=== PATIENT | male | born 1930 | race Caucasian/White ===

== ENCOUNTER 2021-01-18 12:48 | Inpatient (IN) | payer OTHER ==
[2021-01-18 13:18] LABS: VENOUS BASE EXCESS 9.7 mmol/L (-2-2); VENOUS O2 SATURATION 50.9 % (70-80); VENOUS PCO2 52.2 mmHg (38-52); VENOUS PH 7.449 (7.310-7.410)
[2021-01-18 13:21] LABS: BASO % 0.6 % (0-2.0); EOS % 0.1 % (0-4.5); HEMATOCRIT 37.8 % (35.4-49); HEMOGLOBIN 13.1 GM/dL (11.7-16.9); LYMPH % 18.8 % (8-40); MCH 33.9 pg (25.7-33.7); MCHC 34.8 g/dl (32.0-35.9); MEAN CELL VOLUME 97.5 fl (80-96); MEAN PLT VOLUME 7.8 fl (7.5-11.1); MONO % 2.3 % (3.8-10.2); NEUT % 78.2 % (42.8-82.8); PLATELET COUNT 95 K/MM3 (134-434); RBC 3.88 M/mm3 (4.00-5.60); RDW 16.9 % (11.9-15.9); WHITE BLOOD COUNT 4.3 K/mm3 (4.0-10.0)
[2021-01-18 13:28] LABS: INR 0.97 (0.83-1.09); PROTHROMBIN TIME (PATIENT) 11.7 SEC (9.7-13.0)
[2021-01-18] MEDS ORDERED: VANCOMYCIN 1 GM in D5W (PRE-DOCKED) 1,000 MG/250 ML IVPB ONE (13:28)
[2021-01-18] MEDS ORDERED: PIPERACILLIN/TAZOB 2.25 GM 2.25 GM in DEXTROSE 5%-WATER - 50 ML IVPB ONE (13:28)
[2021-01-18] MEDS ORDERED: dilTIAZem HCL 50 MG/10 ML - 10 ML VIAL IVPUSH ONE (13:29)
[2021-01-18 13:30] LABS: ACTIVATED PTT 23.9 SECONDS (25.2-36.5)
[2021-01-18] MEDS ORDERED: PIPERACILLIN/TAZOB 2.25 GM 2.25 GM/50 ML BAG IVPB ONE (13:41)
[2021-01-18 13:42] LABS: BILIRUBIN,DIRECT 0.3 mg/dL (0.0-0.2)
[2021-01-18] MEDS ORDERED: ONDANSETRON 4 MG/2 ML VIAL IVPUSH ONE (13:42)
[2021-01-18] MEDS ORDERED: ONDANSETRON 4 MG/2 ML VIAL ONE (13:44)
[2021-01-18 13:51] LABS: ANISOCYTOSIS 0
[2021-01-18 13:53] LABS: EPI CELLS 13 /uL (0-25.1); HYALINE CASTS 4 /uL (0-3.1); URINE APPEARANCE CLEAR; URINE BACTERIA 150 /uL (0-1359); URINE BILIRUBIN NEGATIVE (NEGATIVE); URINE COLOR YELLOW; URINE GLUCOSE (UA) NEGATIVE (NEGATIVE); URINE KETONE NEGATIVE (NEGATIVE); URINE LEUK ESTERASE NEGATIVE (NEGATIVE); URINE NITRITE NEGATIVE (NEGATIVE); URINE PROTEIN 2+ (NEGATIVE); URINE RBC 24 /uL (0-23.9); URINE UROBILINOGEN 0.2 mg/dL (0.2-1.0); URINE WBC 12 /uL (0-25.8)
[2021-01-18 14:05] LABS: LACTIC ACID 2.4 mmol/L (0.4-2.0)
[2021-01-18 14:08] LABS: CHLORIDE 103 mmol/L (98-107); SODIUM 146 mmol/L (136-145)
[2021-01-18 14:11] LABS: CALCIUM 7.5 mg/dL (8.5-10.1)
[2021-01-18 14:12] LABS: ALBUMIN 2.3 g/dl (3.4-5.0); BLOOD UREA NITROGEN 53.4 mg/dL (7-18); CO2 33 mmol/L (21-32); GLUCOSE,RANDOM 121 mg/dL (74-106)
[2021-01-18 14:15] LABS: CREATININE 2.9 mg/dL (0.55-1.3); SGOT/AST 121 U/L (15-37); SGPT/ALT 61 U/L (13-61)
[2021-01-18 14:16] LABS: ALK PHOS 208 U/L (45-117)
[2021-01-18 14:17] LABS: TOT PROT 6.4 g/dl (6.4-8.2)
[2021-01-18 14:46] LABS: ANION GAP 10 MMOL/L (8-16)
[2021-01-18 14:59] LABS: MAGNESIUM 1.7 mg/dL (1.8-2.4)
[2021-01-18] MEDS ORDERED: methylPREDNISolone NA SUCC 125 MG/2 ML VIAL IVPB ONE (15:31)
[2021-01-18] MEDS ORDERED: methylPREDNISolone NA SUCC 125 MG/2 ML VIAL ONE (15:33)
[2021-01-18] MEDS ORDERED: MAGNESIUM SULF 50% (8.12 MEQ/2 ML-1 GM VIAL) IVPB ONE (15:35)
[2021-01-18] MEDS ORDERED: LACTATED RINGERS SOLUTION 1000 ML INFUS.BAG IV ONE (15:35)
[2021-01-18] MEDS ORDERED: KCL 10 MEQ IVPB 10 MEQ/100 ML INFUS.BAG IVPB ONE (15:42)
[2021-01-18] MEDS ORDERED: MAGNESIUM SULFATE IN WATER 2 GM/50 ML IVPB IVPB ONE (15:42)
[2021-01-18] MEDS ORDERED: DILTIAZEM INJECTION 125 MG in SODIUM CHLORIDE 100 ML IVPB SCH (15:45)
[2021-01-18 15:56] LABS: ARTERIAL BLD GAS O2 SATURATION 94.4 mmHg (95-98); ARTERIAL BLOOD GAS BASE EXCESS 8.5 mmol/L (-2-2); ARTERIAL BLOOD GAS PO2 69.8 mmHg (80-100); ARTERIAL BLOOD GAS pH 7.444 (7.350-7.450)
[2021-01-18] MEDS ORDERED: dilTIAZem HCL 50 MG/10 ML - 10 ML VIAL ONE (16:07)
[2021-01-18] MEDS: KCL 10 MEQ IVPB 10 MEQ/100 ML INFUS.BAG IVPB SCH ×3 (16:23→18:56)
[2021-01-18] MEDS ORDERED: KCL 10 MEQ IVPB 20 MEQ/200 ML INFUS.BAG IVPB ONE (16:28)
[2021-01-18] MEDS: MORPHINE SULFATE 2 MG/ML VIAL IVPUSH PRN ×4 (18:36→23:10)
[2021-01-18] MEDS ORDERED: LORazepam 2 MG/ML SDV VIAL IVPUSH PRN (18:43)
[2021-01-18 20:41] VITALS: BMI 28.6
[2021-01-18] MEDS ORDERED: PIPERACILLIN/TAZOB 3.375 GM 3.375 GM in DEXTROSE 5%-WATER - 50 ML IVPB SCH (22:00)
[2021-01-18] MEDS ORDERED: PIPERACILLIN/TAZOB 2.25 GM 2.25 GM in DEXTROSE 5%-WATER - 50 ML IVPB SCH ×2 (22:00→22:40)
[2021-01-18] MEDS ORDERED: PIPERACILLIN/TAZOBACTAM 2.25 GM VIAL IVPB ONE (22:11)
[2021-01-18] MEDS ORDERED: DEXTROSE 5%-WATER - 50 ML IVPB ONE (22:11)
[2021-01-19 01:41] VITALS: BP 112/41; PULSE 82; TEMP 97.5
[2021-01-19] MEDS ORDERED: PIPERACILLIN/TAZOB 2.25 GM 2.25 GM in DEXTROSE 5%-WATER - 50 ML IVPB SCH ×2 (03:00→22:00)
== END 2021-01-19 02:00 | disposition expired | DRG 177 ==
LOC: JER 12:48 → JERBED 14:44 → J5S 17:59
PROVIDERS: ADMIT Internal Medicine; ATTEND Internal Medicine
DX: J69.0 Pneumonitis due to inhalation of food and vomit (principal); J96.01 Acute respiratory failure with hypoxia; C34.90 Malignant neoplasm of unspecified part of unspecified bronchus or lung; I48.91 Unspecified atrial fibrillation; E87.6 Hypokalemia; E83.42 Hypomagnesemia; E83.51 Hypocalcemia; I95.1 Orthostatic hypotension; N18.30 Chronic kidney disease, stage 3 unspecified; J44.9 Chronic obstructive pulmonary disease, unspecified; D69.6 Thrombocytopenia, unspecified; I12.9 Hypertensive chronic kidney disease with stage 1 through stage 4 chronic kidney disease, or unspecified chronic kidney disease
CPT/HCPCS: 36415; 36600; 71045-TC-FY; 71250-TC; 80053; 81003; 82248; 82550; 82553; 82728; 82803; 83605; 83615; 83735; 84484; 85025; 85610; 85730; 86140; 86900; 87040; 87086; 87804; 93005; 93010; 99291; C9803; U0003; U0005